=== PATIENT | male | born 1965 | race Caucasian/White ===

== ENCOUNTER 2021-02-21 19:12 | Observation (INO) | payer OTHER, BC ==
[~2021-02-21] VITALS: Ht 180.3 cm; Wt 90.7 kg
[2021-02-21 20:04] LABS: Source, Urine Voided
[2021-02-21 20:15] LABS: BASOPHILS ABSOLUTE AUTO 0.04 K/mm3 (0.00-0.23); BASOPHILS PERCENT AUTO 0 % (0-2); EOSINOPHILS ABSOLUTE AUTO 0.01 K/mm3 (0.00-0.68); EOSINOPHILS PERCENT AUTO 0 % (0-6); Hematocrit 42.2 % (37.0-53.0); Hemoglobin 14.5 g/dL (13.5-17.5); IMMATURE GRAN ABSOLUTE AUTO 0.13 K/mm3 (0.00-0.10); IMMATURE GRAN PERCENT AUTO 1 % (0-1); LYMPHOCYTES ABSOLUTE AUTO 0.71 K/mm3 (0.84-5.20); LYMPHOCYTES PERCENT AUTO 4 % (21-46); MONOCYTES ABSOLUTE AUTO 0.86 K/mm3 (0.16-1.47); MONOCYTES PERCENT AUTO 5 % (4-13); Mean Corpuscular HGB 30.4 pg (26.0-34.0); Mean Corpuscular HGB Conc 34.4 g/dL (31.5-36.5); Mean Corpuscular Volume 89 fL (80-100); Mean Platelet Volume 10.3 fL (9.1-12.4); NEUTROPHILS ABSOLUTE AUTO 15.05 K/mm3 (1.96-9.15); NEUTROPHILS PERCENT AUTO 90 % (41-73); Platelet Count 257 K/mm3 (150-400); RDW Coefficient Variation 12.5 % (11.7-14.2); RDW Standard Deviation 40.5 fL (35.1-46.3); Red Blood Cell Count 4.77 M/mm3 (4.30-5.90)
[2021-02-21 20:35] LABS: Alanine Aminotransfer (ALT/SGP 46 U/L (12-78); Albumin/Globulin Ratio 1.3 (0.8-1.8); Alk Phos 82 U/L (50-136); Anion Gap 7 mmol/L (6-16); Aspartate Aminotrans (AST/SGOT 52 U/L (12-37); Beta HCG, Quantitative, Serum <1 mIU/mL (0-1); Bilirubin, Total 0.5 mg/dL (0.1-1.0); Blood Urea Nitrogen 21 mg/dL (8-24); Bun/Creatinine Ratio 17.6 (12.0-20.0); CO2, Blood 23 mmol/L (21-32); Calcium, Blood 8.8 mg/dL (8.5-10.1); Chloride, Blood 106 mmol/L (98-108); Creatinine, Blood 1.19 mg/dL (0.60-1.20); Ethanol (Alcohol), Blood, Med <3 mg/dL; Glomerular Filtration Rate >60 (60-); Glucose, Blood 126 mg/dL (70-99); Potassium, Blood 4.1 mmol/L (3.5-5.5); Sodium, Blood 136 mmol/L (136-145)
[2021-02-21 20:43] LABS: Appearance, Urine Clear (Clear); Bilirubin, Urine Neg (Neg); Blood, Urine 3+ (Neg); Color, Urine Yellow (P-Yellow); Glucose Qualitative, Urine Neg (Neg); Ketones, Urine 1+ (Neg); Leukocyte Esterase, Urine Neg (Neg); Nitrite, Urine Neg (Neg); Protein, Urine 1+ (Neg); Urobilinogen, Urine NORM (Normal)
[2021-02-21 21:00] LABS: Bacteria Few /hpf; Red Blood Cells, Urine Rare /hpf (0-2); Squamous Epithelial Cells Rare /hpf (Few); White Blood Cells, Urine Rare /hpf (0-5)
[2021-02-21 21:18] LABS: U Amphetamine Screen Not Detected; U Barbituate Screen Not Detected; U Benzodiazapine Screen Not Detected; U Buprenorphine Screen Not Detected; U Cannabinoids Screen Not Detected; U Cocaine Screen Not Detected; U Methadone Screen Not Detected; U Methamphetamine Screen Not Detected; U Opiates Screen Not Detected; U Oxycodone Screen Not Detected; U Phencyclidine Screen Not Detected; U Propoxyphene Screen Not Detected
[2021-02-21 21:53] LABS: International Normalized Ratio 0.98; Prothrombin Time Results 10.6 Sec (9.7-11.5)
--- NOTE | 2021-02-21 23:03 | NUR ---
REPORT RECEIVED FROM JEY LIN. FROM ED. PT TO BE TRANSFERRED IN ROOM 227.
--- NOTE | 2021-02-22 00:05 | NUR ---
PT ARRIVED FROM ED AT 2318 VIA STRETCHER. PT WAS ABLE TO TRANSFER HIMSELF FROM BED WITH SOME ASSISTANCE IN HOLDING HIS COLLAR. PT REPORTS MINIMAL PAIN AT REST. PAIN LEVEL OF 3-4/10. PT DIFFICULTY USING URINAL, STATING THAT HE IS UNCOMFORTABLE, SO WE WENT USE THE BATHROOM, TOLERATING AMBULATION WITH MIN 1 PERSON ASSISTANCE. VOIDED 500ML. PT HAD SOME SANDWICH AND WATER BEFORE MIDNIGHT. NPO AFTER MIDNIGHT. HE WILL HAVE AN MRI DONE TOMORROW. TOLERATING IT WELL DENIES NAUSEA AND VOMITING. PT DENIES ANY NUMBNESS, TINGLING SENSATION, CHEST PAIN AND SOB. HE HAS SOME ADRIANA ON TOP OF HEAD AND SUTURES ON R ALEVISM DONE FROM ED. RED ABRASION ON R SHOULDER WAS PRESENT WELL. ORIENTED IN ROOM. CALL LIGHT WITHIN REACH.
--- NOTE | 2021-02-22 04:42 | NUR ---
SHIFT SUMMARY NO ACUTE CHANGES SINCE PT WAS TRANSFERED FROM ED. PT SAT ON THE RECLINER FOR AN HOUR STATING THAT HE FEELS UNCOMFORTABLE WITH COLLAR BRACE. HE ALSO REPORTED PAIN ON NECK AND SOME ON LOW BACK. PAIN MANAGED WITH MORPHINE. PT DENIES NAUSEA AND VOMITING. HE ALSO DENIES NUMBNESS AND TINGLING SENSATION. HEAD LACERATION WITH ADRIANA STILL INTACT AND ADRIANA ON R SHINTO STILL INTACT WELL. PT ALSO DENIES HEADACHE AND DIZZINESS. PT AMBULATING WITH 1 PERSON ASSIST, FEELS SOME WEAKENESS DUE TO PAIN. ANTICIPATING FOR MRI TODAY. WILL PROVIDE REPORT TO ONCOMING NURSE. CALL LIGHT WITHIN REACH.
--- NOTE | 2021-02-22 08:20 | NUR ---
PT TRANSPORTED VIA TO [facility]
--- NOTE | 2021-02-22 09:30 | NUR ---
PT BACK FROM MRI PT'S R EAR BLEEDING CLEANED WITH SOAP AND WATER ABX OINT PLACED AND BANDAID PUT ON IT ALSO CLEANED THE ADRIANA IN THE SCAPL AND PLACED OINT PT'S IS GOING TO BRING IN HIS GOOD BRUSH AND HE WILL TAKE A SHOWER STATED THAT HIS EAR ROB SORE DUE TO THE C-COLLAR BEING ON INCORRECTLY FROM THE ER DEPT STATED HE REMOVED IT AND FLIPPED IT AROUND AND IT IS NO LONGER RUBBING THE EAR
--- NOTE | 2021-02-22 10:20 | NUR ---
DR GONZALEZ BY TO SEE PT TO REVIEW MRI FRO THIS AM
--- NOTE | 2021-02-22 13:00 | NUR ---
PO NORCO GIVEN EARLIER MORPHINE GIVEN PT PAIN 02/28 NOW
[2021-02-22] MEDS ORDERED: Norco 5-325 Ta1 EACH PO (14:43)
--- NOTE | 2021-02-22 15:00 | NUR ---
ANUP ZAIDI HERE AWAITING DR GONZALEZ TO PLACE IT
[2021-02-22] MEDS ORDERED: Robaxin750 MG PO (16:15)
--- NOTE | 2021-02-22 16:45 | NUR ---
DR GONZALEZ PLACED THE ASPEN C COLLAR WC ESCORT TO CAR WITH SPOUSE RX GIVEN NO ACUTE CHANGES IN COND
== END 2021-02-22 16:43 | disposition home or self-care (01) ==
LOC: ER 19:12 → SURS 19:13 → UNDODEPER 02-28 13:40
PROVIDERS: Emergency Medicine; ADMIT Surgery
DX: S16.1XXA Strain of muscle, fascia and tendon at neck level, initial encounter (principal); S13.4XXA Sprain of ligaments of cervical spine, initial encounter; S01.02XA Laceration with foreign body of scalp, initial encounter; V89.0XXA Person injured in unspecified motor-vehicle accident, nontraffic, initial encounter
CPT/HCPCS: 12002; 70450; 71045; 72125; 72141; 74177; 80053; 81001; 83690; 84702; 85025; 85610; 96374; 96374-59; 96375-59; 96376; 99285-25; A9270; G0378; G0480; J2270; J2405; L0160; Q9967